=== PATIENT | female | born 1975 | race Caucasian/White ===

== ENCOUNTER 2020-11-15 12:07 | Outpatient (CLI) | payer BC, MEDICARE, SELFPAY ==
--- NOTE | ~2020-11-15 | XR_ITS ---
XR hip BI wo pelvis DATE: 11/15/2020 12:34 INDICATION: Bilateral anterior hip pain for 2 months. TECHNIQUE: AP and lateral views of each hip COMPARISON: None FINDINGS: No fracture, dislocation, avascular necrosis or bone destruction of either hip. Normal alig nment at the pubic symphysis and sacroiliac joints. IMPRESSION: No significant abnormality of the hips Reviewed, dictated and finalized at location A.
== END 2020-11-15 12:08 | disposition home or self-care (01) ==
LOC: CHSIMG 12:14
PROVIDERS: PCP Internal Medicine; Visit Provider Internal Medicine
DX: M25.552 Pain in left hip (principal); M25.551 Pain in right hip
CPT/HCPCS: 73521

== ENCOUNTER → 2020-11-28 07:43 | Outpatient (CLI) | payer BC, MEDICARE, SELFPAY ==
--- NOTE | ~2020-11-28 | MR_ITS ---
EXAMINATION: MR lumbar spine wo/w con DATE: 11/28/2020 08:50 INDICATION: Worsening low back pain TECHNIQUE: Magnetic resonance imaging (MRI) of the lumbar spine was performed without and with 17 mL Multihance intravenous contrast. Sequences included sagittal T2-weighted FSE, sagittal T2-weighted FS FSE, and sagittal and axial T1-weighted FSE. Postcontrast sequences included axial T2-weighted FSE, sagittal T1-weighted FSE, and axial and sagittal T1-weighted FS FSE. COMPARISON: 02/15/2018 FINDINGS: 3 mm retrolisthesis L5 on S1. Alignment is otherwise normal. Vertebral body heights are normal. Norm al marrow signal. No interval change in moderate disc height loss at L5-S1. The conus medullaris term inates at L1-L2. There is normal signal in the caudal spinal cord. Paravertebral soft tissues are unr emarkable. No abnormally enhancing lesions identified. The following disc levels are specifically dis cussed: T12-L1: The disc does not extend beyond the endplate margin. There is mild bilateral facet joint oste oarthritis. There is no neural foraminal stenosis. There is no central canal stenosis. L1-L2: The disc does not extend beyond the endplate margin. There is mild bilateral facet joint osteo arthritis. There is no neural foraminal stenosis. There is no central canal stenosis. L2-L3: The disc does not extend beyond the endplate margin. There is mild bilateral facet joint osteo arthritis. There is no neural foraminal stenosis. There is no central canal stenosis. L3-L4: Disc is mildly bulging. There is mild left and mild to moderate right facet joint osteoarthrit is. There is mild bilateral neural foraminal stenosis. There is no central canal stenosis. L4-L5: Disc is mildly bulging. There is mild hypertrophy of the ligamentum flavum. There is moderate bilateral facet joint osteoarthritis. There is mild to moderate right and mild left neural foraminal stenosis. There is mild central canal stenosis. L5-S1: Again seen is a moderate diffuse disc bulge with annular fissure and superimposed small centra l disc extrusion with disc material extending approximately 3 to 4 mm caudal to the level of the supe rior endplate of S1. A prior left paracentral extrusion which extended 6 mm cephalad to the level of the inferior endplate of L5 and measured 8 x 5 mm transaxial dimensions is no longer visualized. Ther e is mild bilateral facet joint osteoarthritis. There is mild right and mild to moderate left neural foraminal stenosis. Improvement in the prior mild central canal stenosis as well as of the prior left greater than right narrowing of the lateral recesses. IMPRESSION: 1. Unchanged moderate disc height loss at L5-S1. There is an annular fissure with disc extrusion at t his level which appears unchanged centrally but with resolution of a prior cephalad extending left pa racentral disc extrusion with decrease in the prior mild central canal and left-sided predominant lat eral recess narrowing. 2. No interval change in minimal to mild spondylosis in the more cephalad lumbar spine. Reviewed, dictated and finalized at location B. IMPRESSION: 1. Unchanged moderate disc height loss at L5-S1. There is an annular fissure wi th disc extrusion at this level which appears unchanged centrally but with reso lution of a prior cephalad extending left paracentral disc extrusion with decre ase in the prior mild central canal and left-sided predominant lateral recess n arrowing. 2. No interval change in minimal to mild spondylosis in the more cephalad lumba r spine.
[2020-11-28 08:23] LABS: Estimated Glomerular Filt Rate > 60
== END ==
PROVIDERS: PCP Internal Medicine; Visit Provider Internal Medicine
DX: M54.5 Low back pain (principal)
CPT/HCPCS: 72158; A9577

== ENCOUNTER → 2021-01-10 12:59 | Outpatient (CLI) | payer BC, MEDICARE, SELFPAY ==
--- NOTE | ~2021-01-10 | MM_ITS ---
EXAMINATION: MM screening [facility] BI w sarah HISTORY: Screening TECHNIQUE: Craniocaudal and mediolateral oblique 3-D tomosynthesis images were obtained and synthetic 2-D images were generated. CAD analysis was submitted and interpreted. COMPARISON: Comparison to multiple prior studies sequentially, with oldest reviewed study dated 07/24. BREAST PARENCHYMAL COMPOSITION: There are scattered areas of fibroglandular density. FINDINGS: There is no evidence of suspicious mass, calcification, or architectural distortion to sugg est malignancy in either breast. There has been no suspicious interval change. IMPRESSION: 1. No mammographic evidence of malignancy. 2. Recommend routine screening mammography in one year. BI-RADS Category 1: Negative Reviewed, dictated and finalized at location A.
== END ==
PROVIDERS: PCP Internal Medicine; Visit Provider Obstetrics & Gynecology
DX: Z12.31 Encounter for screening mammogram for malignant neoplasm of breast (principal)
CPT/HCPCS: 77063; 77067

== ENCOUNTER → 2022-03-04 16:06 | Outpatient (CLI) | payer BC, SELFPAY ==
--- NOTE | ~2022-03-04 | MM_ITS ---
EXAMINATION: MM screening [facility] BI w sarah HISTORY: Screening mammogram TECHNIQUE: Craniocaudal and mediolateral oblique 3-D tomosynthesis images were obtained and synthetic 2-D images were generated. CAD analysis was submitted and interpreted. COMPARISON: 01/10/2021, 12/05/2018 BREAST PARENCHYMAL COMPOSITION: There are scattered areas of fibroglandular density. FINDINGS: There is no suspicious mass, calcification, or architectural distortion to suggest malignan cy in either breast. There has been no suspicious interval change. IMPRESSION: 1. No mammographic evidence of malignancy. 2. Recommend routine screening mammography in one year. BI-RADS Category 1: Negative Reviewed, dictated and finalized at location A.
== END ==
PROVIDERS: PCP Internal Medicine; Visit Provider Obstetrics & Gynecology
DX: Z12.31 Encounter for screening mammogram for malignant neoplasm of breast (principal)
CPT/HCPCS: 77063; 77067

== ENCOUNTER 2022-12-27 13:37 | Emergency (ER) | payer BC, MEDICARE, SELFPAY ==
[2022-12-27 13:38] VITALS: BP 150/78; PULSE 94; RESP 16; TEMP 36.6; O2SAT 98
--- NOTE | 2022-12-27 14:08 | ED.SKABFB ---
HPI - Skin/Abscess/Foreign Bdy General Chief complaint: Skin/Abscess/Foreign Body Stated complaint: growing cyst Time Seen by Provider: 12/27/22 13:48 History of Present Illness HPI narrative: 47 year old female here for evaluation of an abscess to her right breast. States that the abscess has been intermittent for the past several years, was previously surgically excised by Dr. Michael Nash states it returned about a week ago. She saw him in office and was placed on antibiotics but the redness swelling and pain has not improved. She states that the symptoms ibuprofen without relief of her symptoms, last taken yesterday. Related Data Home Medications Medication Instructions Recorded Confirmed cyclobenzaprine 5 mg tablet 5 mg PO DAILY 07/23/22 07/23/22 Allergies Allergy/AdvReac Type Severity Reaction Status Date / Time atorvastatin [From Lipitor] Allergy Severe Other Verified 07/23/22 08:57 rosuvastatin [From Crestor] Allergy Severe Other Verified 07/23/22 08:57 Review of Systems Review of Systems: Gen: Denies fevers or chills Eyes: Denies eye pain or visual change ENT: Denies congestion Respiratory: Denies shortness of breath or cough CV: Denies chest pain or palpitations GI: Denies abdominal pain nausea, emesis or diarrhea denies burning, urgency, frequency or hematuria Musculoskeletal: Denies back pain or muscle pain Neuro: Denies numbness, tingling, weakness or focal weakness Skin: Reports abscess to right breast Except as documented, all other systems reviewed and negative PMFSH Surgical History Surgical History History of carpal tunnel release Social History Social History (Updated 07/23/22 @ 08:59 by Luisa Sauceda) Smoking status: Former smoker Alcohol intake: never Lack of Transportation: No Lack of Food: Sometimes True Current Housing: I Have Housing Concerned About Future Housing: No Difficulty Paying Gas/Electric Bills: No Difficulty Paying for Meds: No Currently Unemployed: No Education: Trade/Vocational Certificate Difficulty w/ Childcare or Family Care: No Exam Narrative: Gen: alert, oriented, NAD Eyes: EOMI, no icterus Pulm: Respirations even and unlabored, symmetric thorax expansion, no audible stridor or visible cyanosis CV: Regular rate per telemetry GI: No distension, no voluntary/involuntary guarding Neuro: AOx4, moves all extremities without apparent difficulty or weakness, follows commands Skin: there is a 2x2 cm area of erythema, induration and fluctuance to the 3 o'clock position of the right breast that is tender to palpation. Psych: Normal mood/affect, insight/judgement good, adequate fund of knowledge, recent/remote memory intact Course Vital Signs Vital signs: Vital Signs Temperature 97.8 F 12/27/22 13:38 Pulse Rate 94 12/27/22 13:38 Respiratory Rate 16 12/27/22 13:38 Blood Pressure 150/78 H 12/27/22 13:38 Pulse Oximetry 98 12/27/22 13:38 Oxygen Delivery Room Air 12/27/22 13:38 Temperature 97.8 F 12/27/22 13:38 Pulse Rate 94 12/27/22 13:38 Respiratory Rate 16 12/27/22 13:38 Blood Pressure 150/78 H 12/27/22 13:38 Pulse Oximetry 98 12/27/22 13:38 Oxygen Delivery Room Air 12/27/22 13:38 Procedures Abscess I/D other: Date of Incision: 12/27/22 Time of Incision: 14:00 Side (if applicable): right Local Anesthetic: lidocaine 1% Amount of anesthesia used (mL): 1 Technique: incised with #11 blade Amount of fluid expressed (mL): 5 Irrigation: No Packing used?: none I&D Results: Pus and Blood MDM - Skin/Abscess/Foreign Bdy MDM Narrative Medical decision making narrative: 47-year-old female here for evaluation of pain, swelling and redness to the medial aspect of her right breast x several days, consistent with abscess versus furuncle. The area was incised and drained in
[2022-12-27] MEDS: LIDOCAINE/PRILOCAINE CREAM 2.5-2.5% TUBE 1 EACH TOPICAL (14:20)
[2022-12-27] MEDS: KETOROLAC 30 MG/ML VIAL (*BKC) IM (14:20)
[2022-12-27] MEDS: ACETAMINOPHEN 325 MG TABLET 650 MG PO (14:20)
== END 2022-12-27 15:32 | disposition home or self-care (01) ==
PROVIDERS: Emergency Provider Physician Assistant; PCP Internal Medicine
DX: N61.1 Abscess of the breast and nipple (principal); Z87.891 Personal history of nicotine dependence
CPT/HCPCS: 10060; 96372; 99283; A9270; J1885

== ENCOUNTER 2023-01-22 02:17 | Day surgery (SDC) | payer BC, MEDICARE, SELFPAY ==
[2023-01-13 09:04] VITALS: BMI 28.2
--- NOTE | 2023-01-13 09:09 | PC.NURSE ---
Report to the Outpatient Waiting Room, entrance under the green pavilion located off [address], at time 6:00 on date 01/22/23. Planned Procedure Time: 7:30. Time changes happen often and if your time is changed the preop area will call you the afternoon before. - You and your visitor will be asked to self-screen and do not enter if you have any COVID symptoms. - A mask is optional within the hospital at this time. Patients may have clear liquids (water, carbonated beverages, clear teas, apple juice) until 3 hours prior to surgery (4:30) with a maximum of 20 ounces. - No food from midnight until time of surgery Take the following medications with a SIP of water the morning of surgery: NONE DO NOT STOP ANY OF YOUR OTHER PRESCRIPTION MEDICATIONS PRIOR TO SURGERY EXCEPT THE FOLLOWING Medications to discontinue per physician: N/A Date to take last dose: N/A Please no make-up, nail lao, hairspray, perfume, deodorant, or body powder the day of surgery. No jewelry (including any body piercings) or valuables the day of surgery, leave them at home. Please take a shower or bath the night before, or the morning of, surgery with an antibacterial soap. Wear comfortable, loose fitting clothing. - Jewelry must be removed prior to entering the operating room. Rings and piercings that are not removed may be cut off. - The hospital will not accept responsibility for valuables. - Please leave all valuables, including medications, at home the day of surgery. If you are going home after surgery, a licensed cement mixer driver must drive you home. - NO public transportation without another adult if you receive anesthesia. - We recommend that an adult stay with you for 24 hours following discharge. - We also recommend that you do not drive, make important decision, drink alcoholic beverages, or take any drugs that were not prescribed by your health care provider for at least 24 hours after your discharge time. Follow any additional instructions given to you from your surgeon. If you or anyone in your household have experienced Covid symptoms in the past week, please notify your surgeon or the nurse liaison at the phone number below for possible testing. Telephone instructions given to PT Jose MANCILLA and asked if any additional questions and then verbalized understanding. Patient advised to call surgeon office or pre surgery nurse liaison [phone] if any additional questions.
--- NOTE | 2023-01-19 07:29 | PM.IMHP ---
H&P: HPI History of Present Illness Date/Time: 01/19/23 07:29 Chief Complaint: Loss of urine Narrative: is a 39 year female admitted for tension-free vaginal tape secondary to stress this pacing leads severe the sneezing. She is also post she is were she is a was or lifts she has loss of this is exam she will tension-free tape risks and benefits were reviewed exclusive aspiration bleeding, transfusion perforation or other with the need for open repair. The risk of surgical was also reviewed great detail. She received the tension-free vaginal tape handout. She questions answered and asked to proceed [facility] Surgical History Surgical History History of carpal tunnel release Social History Social History Smoking packs per day: 1.5 Smoking cigarettes per day: 30.0 Years smoked: 17 Smoking pack-years: 25.50 Smoking status: Former smoker Tobacco type: cigarettes Smoking end date: 08/23/12 Alcohol intake: current Alcohol use details: 1/MONTH Substance use: never Substance use type: does not use Lack of Transportation: No Lack of Food: Sometimes True Current Housing: I Have Housing Concerned About Future Housing: No Difficulty Paying Gas/Electric Bills: No Difficulty Paying for Meds: No Currently Unemployed: No Education: Trade/Vocational Certificate Difficulty w/ Childcare or Family Care: No Living arrangements: with family Spiritual care concerns: No Meds Home Medications and Allergies Home Medications Medication Instructions Recorded Confirmed Type cyclobenzaprine 5 mg tablet 5 mg PO HS 07/23/22 01/13/23 History Allergies Allergy/AdvReac Type Severity Reaction Status Date / Time atorvastatin [From Lipitor] Allergy Severe Swelling Verified 01/13/23 09:03 rosuvastatin [From Crestor] Allergy Severe Swelling Verified 01/13/23 09:03 Exam Const: General: cooperative, healthy appearing, comfortable and average body habitus Orientation/consciousness: oriented to person, oriented to place and oriented to time HENMT: Head: normal to inspection Resp: Effort & Inspection: normal respiratory effort Cardio: Rate: regular rate Rhythm: regular rhythm Heart sounds: S1 normal heart sound present and S2 normal heart sound present GI: Inspection: normal to inspection : External Female Exam: normal external appearance Speculum Exam - Vagina: normal appearance of the vagina and other ( urethra with excess movement with Valsalva) Speculum Exam - Cervix: normal appearance of the cervix Bimanual exam- vagina & uterus: enlarged Bimanual Exam- Adnexa, other: normal adnexae Assessment and Plan Assessment and plan (1) Overflow stress urinary incontinence in female: Code(s): N39.3 - Stress incontinence (female) (male); N39.490 - Overflow incontinence Status: Acute Plan tension-free vaginal tape with cystoscopy
[2023-01-22] VITALS (13 sets, daily range): BP systolic 98–125; BP diastolic 53–85; PULSE 49–67; RESP 12–20; TEMP 36.4; O2SAT 96–100
--- NOTE | 2023-01-22 05:59 | WPDHPUPDATE1 ---
History and Physical Update Update Date/Time: 01/22/23 05:59 History and Physical has been reviewed, including an updated exam of the patient. There are NO changes in the patient's condition. Risks, benefits, and alternatives have been discussed and questions answered. Patient agrees to proceed with procedure.
[2023-01-22] MEDS: LACTATED RINGERS 1,000 ML 30 ML IV CONT ×2 (06:40→09:13)
--- NOTE | 2023-01-22 07:04 | WPDANESEPPF ---
Anes - Initial Pre Proc Eval Procedure: Operation Date: 01/22/23 07:30 Proposed Procedures p Tension Free Vaginal Taping - Sylvain Nash MD Date/Time: 01/22/23 07:04 Surgeon: Sylvain Nash MD Pre Op Diagnosis: sudden urinary incontinance Patient Data Age: 47 Gender: F Height: 1.68 m Weight: 79.4 kg Allergies Allergy/AdvReac Type Severity Reaction Status Date / Time atorvastatin [From Lipitor] Allergy Severe Swelling Verified 01/13/23 09:03 rosuvastatin [From Crestor] Allergy Severe Swelling Verified 01/13/23 09:03 Home Medications Medication Instructions Recorded Confirmed Type cyclobenzaprine 5 mg tablet 5 mg PO HS 07/23/22 01/22/23 History hydrocodone 5 mg-acetaminophen 325 1 tablet PO Q4H PRN pain #20 tabs 01/22/23 Rx mg tablet Patient hx anesthesia problems: none Family hx anesthesia problems: none Results Review: All pre-operative results and documents have been reviewed as part of the pre-operative evaluation. [facility] Surgical History Surgical History History of carpal tunnel release Social History Social History Smoking packs per day: 1.5 Smoking cigarettes per day: 30.0 Years smoked: 17 Smoking pack-years: 25.50 Smoking status: Former smoker Tobacco type: cigarettes Smoking end date: 08/23/12 Alcohol intake: current Alcohol use details: 1/MONTH Substance use: never Substance use type: does not use Lack of Transportation: No Lack of Food: Sometimes True Current Housing: I Have Housing Concerned About Future Housing: No Difficulty Paying Gas/Electric Bills: No Difficulty Paying for Meds: No Currently Unemployed: No Education: Trade/Vocational Certificate Difficulty w/ Childcare or Family Care: No Living arrangements: with family Spiritual care concerns: No Anes - Eval Final PreProcedure Day of Procedure 01/22/23 07:04 Patient weight: overweight Heart: regular rate and rhythm Lungs: clear to auscultation Airway: Mallampati scale class III Neurological: alert and oriented Last oral intake: >/= 8 hours ASA classification: II Emergent: no Anesthetic plan: proceed Anesthesia type and monitoring: general LMA and standard monitoring Results Review: All pre-operative results and documents have been reviewed as part of the pre-operative evaluation. Informed Consent: The patient's anesthetic plan and its attendant risks and benefits were discussed with the patient/family/POA. Questions were solicited and answers provided to the satisfaction of the patient/family/POA.
--- NOTE | 2023-01-22 07:17 | WPDHPUPDATE1 ---
History and Physical Update Update Date/Time: 01/22/23 07:17 History and Physical has been reviewed, including an updated exam of the patient. There are NO changes in the patient's condition. Risks, benefits, and alternatives have been discussed and questions answered. Patient agrees to proceed with procedure.
[2023-01-22] MEDS: ceFAZolin 2 GM/D5W 50 ML 2 GM/50 ML BAG IVPB (07:25)
[2023-01-22] MEDS: KETOROLAC 30 MG/ML VIAL (*BKC) IV PUSH (07:43)
--- NOTE | 2023-01-22 08:08 | W.PM.PROC2 ---
Procedure Note - Detailed Date of Procedure 01/22/23 Pre-op Diagnosis S stress urinary incontinance Post-op Diagnosis Same Procedure Performed tissues free vaginal tape with cystoscopy Surgeon Sylvain Nash MD Anesthesia General Indications this is 47-year-old female with stress urinary Findings hyperactivity with Valsalva the urethra Description of Procedure patient was prepped draped in normal sterile fashion placed in dorsal lithotomy position. Under excellent general trach anesthesia weighted speculum placed posterior fornix vagina. Eighteen Portuguese catheter was placed in bladder. And mid urethral incision was made and the lateral bladder space was entered by blunt dissection. The urethral guide was placed and the bladder retracted laterally the over the right foot retropubic bladder space entered at a 45? angle up to a 35degree and through the fascia. The urethra was retracted to the opposite side and this was repeated on the contralateral side a 70degree cystoscope was then inserted and minor perforation was noted. The bladder was emptied the catheter replace the catheter guide replaced and bit wider entrance was undertaken. The 70degree cystoscope was inserted and noted be clear of the the bladder. The small area where the perforation had occurred was not bleeding and appeared hemostatic. The plastic was removed from the tension-free tape the and tape cut at the suprapubic area. She the incision and the vagina closed with 3-0 Monocryl. A catheter guide of 16 Portuguese was placed in a leg black place Dorinda keep that in for another week. Her spouse was made aware and she be placed on Keflex for 5 days as prevention of UTI. Blood loss estimated at25cc. All sponge needle and instrument counts were correct Implants fit device Estimated Blood Loss 25 Drains No Packing No Pathology None sent Complications Other complications ( bladder perforation as noted) Condition Stable Disposition PACU
[2023-01-22] MEDS: fentaNYL CITRATE INJ (*CRX) 100 MCG/2 ML VIAL 25 MCG IV PUSH ×2 (09:03→09:12)
[2023-01-22] MEDS: ONDANSETRON INJ 4 MG/2 ML VIAL IV PUSH (09:36)
[2023-01-22] MEDS: SCOPOLAMINE 1.5 MG PATCH TRANSDERM (09:53)
[2023-01-22] MEDS: diphenhydrAMINE HCl INJ 50 MG/ML VIAL 25 MG IV PUSH (09:56)
== END 2023-01-22 11:15 | disposition home or self-care (01) ==
PROVIDERS: PCP Internal Medicine; Visit Provider Obstetrics & Gynecology
PROC: 0TSD0ZZ Reposition Urethra, Open Approach (ICD-10-PCS; CPT 57288; principal; 2023-01-22 07:30)
DX: N39.3 Stress incontinence (female) (male) (principal); N39.490 Overflow incontinence; Z87.891 Personal history of nicotine dependence
CPT/HCPCS: 57288; 36415; 86850; 86900; 86901; A9270; C1771; J0690; J1100; J1200; J1885; J2250; J2405; J2704; J3010; J7030; J7120

== ENCOUNTER 2023-06-07 11:52 | Outpatient (CLI) | payer BC, SELFPAY ==
--- NOTE | ~2023-06-07 | XR_ITS ---
XR chest 2V DATE: 06/07/2023 12:14 INDICATION: Wheezing. Upper respiratory infection. TECHNIQUE: 2 views COMPARISON: 04/03/2021 PA chest FINDINGS: Normal heart size. No hilar or mediastinal enlargement. Focal infiltrate or atelectasis in the posteromedial right lower lobe. No pulmonary infiltrate or consolidation is noted elsewhere. No pleural effusion or pulmonary vascula r congestion or pneumothorax. Mild thoracic dextroscoliosis. Mild degenerative spurring of the thoracic spine. IMPRESSION: Focal infiltrate in the posterior medial right lower lobe which may be due to atelectasis or consolidation. Pneumonia is not excluded. Reviewed, dictated and finalized at location B.
== END 2023-06-07 11:53 | disposition home or self-care (01) ==
LOC: CHSIMG 11:57
PROVIDERS: PCP Internal Medicine; Visit Provider Nurse Practitioner Family
DX: J06.9 Acute upper respiratory infection, unspecified (principal); R06.2 Wheezing; R91.8 Other nonspecific abnormal finding of lung field
CPT/HCPCS: 71046

== ENCOUNTER 2023-06-24 17:23 | Emergency (ER) | payer BC, SELFPAY ==
[2023-06-24] VITALS (13 sets, daily range): BP systolic 135–156; BP diastolic 82–90; PULSE 66–87; RESP 13–22; TEMP 36.6; O2SAT 94–100
--- NOTE | ~2023-06-24 | CT_ITS ---
EXAMINATION: CT abdomen pelvis wo con DATE: 06/24/2023 19:29 INDICATION: Left flank pain TECHNIQUE: Computed tomography (CT) of the abdomen and pelvis was performed without intravenous contr ast. The dose-length product was 685.49 mGy-cm. Automated exposure control and iterative reconstructi on technique were employed. COMPARISON: None. FINDINGS: Wedge-shaped atelectasis/scarring right lower lobe. Superimposed pneumonia not excluded. He art size normal. No significant pleural or pericardial effusion. No significant vascular abnormality. No lymphadenopathy. The liver, spleen, pancreas, adrenal glands and left kidney are unremarkable. Th ere are 2 punctate 2 mm nonobstructing right renal stones. No ureteral stones or hydronephrosis. Blad rose is moderately distended. Nonobstructive bowel gas pattern. Colonic diverticulosis without evidenc e for diverticulitis. IMPRESSION: 1. Nonobstructing right nephrolithiasis. 2: Wedge-shaped atelectasis/scarring right lower lobe. Superimposed pneumonia not excluded. Reviewed, dictated and finalized at location A.
[2023-06-24 18:01] LABS: Basophils Percent Auto 0.5 % (0.2-1.2); Eosinophils Absolute Auto 0.1 K/mm3 (0-0.3); Eosinophils Percent Auto 0.9 % (0-4.4); Hematocrit 47.5 % (37.0-47.0); Hemoglobin 15.5 g/dL (12.0-15.0); Immature Granulocyte Absolute 0.01 K/mm3 (0.00-0.031); Immature Granulocyte Percent A 0.2 % (0-0.5); Lymphocytes Absolute Auto 1.72 K/mm3 (0.9-3.2); Lymphocytes Percent Auto 25.9 % (18.3-44.2); Mean Corpuscular HGB Conc 32.6 g/dl (32-36); Mean Corpuscular Hemoglobin 28.4 pg (26-34); Mean Corpuscular Volume 87.2 fl (80-100); Mean Platelet Volume 10.7 fl (7.4-10.4); Monocytes Absolute Auto 0.5 K/mm3 (0.1-0.6); Monocytes Percent Auto 7.5 % (2.6-8.5); Neutrophils Absolute Auto 4.3 K/mm3 (1.3-6.7); Platelet Count Result 286 k/mm3 (150-375); Red Blood Count 5.45 M/mm3 (4.2-5.4); Red Cell Distribution Width 13.3 % (11.5-14.5); White Blood Count 6.7 K/mm3 (4.5-10.0)
[2023-06-24 18:09] LABS: Appearance Urine Clear (Clear); Bacteria Urine None Seen /hpf; Bilirubin Urine Negative (Negative); Blood Urine Negative (Negative); Color Urine Yellow (Yellow); Glucose Urine UA Negative (Negative); Ketones Urine Trace mg/dL (Negative); Leukocyte Esterase Ur Trace LEU/UL (Negative); Nitrate Urine Negative (Negative); Non Pathogenic Casts 0-2; Protein Urine Negative (Negative); RBC Urine 0-2 /hpf (0-2); Specific Grav Ur 1.012 (1.001-1.035); Squamous Epithelial Cell Urine Occasional /hpf (Few); Urobilinogen Urine 0.2 mg/dL (<2.0)
[2023-06-24 18:12] LABS: Add Urine Microscopic? YES; Alanine Aminotransferase 52 U/L (6-35); Albumin Level 4.7 g/dL (3.5-5.1); Alkaline Phosphatase 81 U/L (38-126); Anion Gap 4 mmol/L (8-16); Aspartate Amino Transferase 38 U/L (14-36); Bilirubin,Total 0.7 mg/dL (0.2-1.3); Blood Urea Nitrogen 22 mg/dL (7-17); Calcium 10.1 mg/dL (8.4-10.2); Carbon Dioxide 31 mmol/L (22-30); Chloride 101 mmol/L (98-107); Estimated CRCL calculation 82 ml/min; Estimated Glomerular Filt Rate > 60; Glucose 95 mg/dL (65-110); Lipase 186 U/L (23-300); Potassium 4.1 mmol/L (3.4-5.0); Sodium 136 mmol/L (137-145)
--- NOTE | 2023-06-24 19:09 | ED.FEMALEGU ---
HPI - Female Genitourinary General Chief complaint: Urogenital-Female Stated complaint: I think I have kidney stones Time Seen by Provider: 06/24/23 18:43 History of Present Illness HPI Narrative: Patient is a 47-year-old female who presents to the emergency department to this evening complaining of left-sided flank pain. Patient states that she does have a history of kidney stones, has had 2 in the past which both required lithotripsy due to the large size. Patient states that her last kidney stone was approximately 8 years ago and she has not had 1 since then. She states that her left flank pain started on hollow weight night, June 22, and has been progressively getting worse. Patient states that today the pain was very uncomfortable and she finally decided to come to the emergency department for further evaluation. Patient admits that she recently finished course of antibiotic for pneumonia with doxycycline and azithromycin. She is denying any dysuria or hematuria but states that she has been having increased urinary frequency. Patient denies any chest pain, shortness of breath, nausea, vomiting, abdominal pain, constipation, diarrhea, melena, hematochezia, fevers or chills. He also denies any headaches, dizziness, lightheadedness, blurry visions, dizziness, focal weakness, numbness and or tingling. There are no other modifying, alleviating, or precipitating factors at this time. Related Data Home Medications Medication Instructions Recorded Confirmed cyclobenzaprine 5 mg tablet 5 mg PO HS 07/23/22 01/22/23 Allergies Allergy/AdvReac Type Severity Reaction Status Date / Time atorvastatin [From Lipitor] Allergy Severe Swelling Verified 06/24/23 17:23 rosuvastatin [From Crestor] Allergy Severe Swelling Verified 06/24/23 17:23 Review of Systems Review of Systems: All systems are reviewed and are negative unless stated otherwise in the HPI. [facility] Surgical History Surgical History History of carpal tunnel release Social History Social History Smoking packs per day: 1.5 Smoking cigarettes per day: 30.0 Years smoked: 17 Smoking pack-years: 25.50 Smoking status: Former smoker Tobacco type: cigarettes Smoking end date: 08/23/12 Alcohol intake: current Alcohol use details: 1/MONTH Substance use: never Substance use type: does not use Lack of Transportation: No Lack of Food: Sometimes True Current Housing: I Have Housing Concerned About Future Housing: No Difficulty Paying Gas/Electric Bills: No Difficulty Paying for Meds: No Currently Unemployed: No Education: Trade/Vocational Certificate Difficulty w/ Childcare or Family Care: No Living arrangements: with family Spiritual care concerns: No Exam Narrative: General: Alert, awake, afebrile, in no acute distress. HEENT: PERRL, no rhinorrhea, no post nasal drip, oropharynx clear. Neck: Trachea midline, no JVD, no lymphadenopathy. Cardiovascular: Regular rate and rhythm, no murmurs, rubs or gallops, no peripheral edema. Respiratory: Clear to auscultation bilaterally, no tachypnea, no wheezing, no rhonchi, no rubs, no respiratory distress. Abdomen: Soft, nontender, nondistended, no rebound, no guarding, no peritoneal signs, negative CVA tenderness over left flank. Musculoskeletal: No joint swelling or deformity, normal muscle tone. Skin: No rashes or petechia, no signs of infection. Psychiatric: Alert and oriented, normal behavior and judgment for situation. Neurological: Alert and oriented to person, place, and time. Follows all commands. No focal deficits, speech is clear and fluent. Course Vital Signs Vital signs: Vital Signs Temperature 98 F 06/24/23 17:26 Pulse Rate 81 06/24/23 17:26 Respiratory Rate 18 06/24/23 17:26 Blood Pressure 135/82 06/24/23 17:26 Pulse Oximetry 97 06/24/23 1
--- NOTE | 2023-06-24 19:14 | PC.NURSE ---
This RN took patient report from RONALD Holland. This RN took patient report from RONALD Holland.
[2023-06-24] MEDS: KETOROLAC 15 MG/ML VIAL (*BKC) IV PUSH (19:55)
== END 2023-06-24 21:06 | disposition home or self-care (01) ==
PROVIDERS: Family Medicine; Emergency Provider Emergency Medicine; PCP Internal Medicine
DX: R10.9 Unspecified abdominal pain (principal); Z87.442 Personal history of urinary calculi; Z87.891 Personal history of nicotine dependence; R91.8 Other nonspecific abnormal finding of lung field; N20.0 Calculus of kidney
CPT/HCPCS: 36415; 74176; 80053; 81001; 81025; 83690; 85025; 87086; 96374; 99284; J1885

== ENCOUNTER 2023-07-28 11:24 | Outpatient (CLI) | payer BC, SELFPAY ==
--- NOTE | ~2023-07-28 | XR_ITS ---
EXAMINATION: XR chest 2V 07/28/2023 11:51 INDICATION: Persistent cough. Pneumonia. PROCEDURE: 2 view chest COMPARISON: 06/07/2023 FINDINGS: The lungs are clear. The cardiomediastinal silhouette is within normal limits. There are no pleural effusions. There is no pneumothorax suspected. IMPRESSION: 1: NO ACUTE CARDIOPULMONARY DISEASE. Reviewed, dictated and finalized at location B. [employer]PER
--- NOTE | ~2023-07-28 | XR_ITS ---
EXAM: XR sinus min 3V DATE: 07/28/2023 11:51 HISTORY: persistant cough/FU pneumonia x May . COMPARISON: None available. FINDINGS: Normal mineralization. No fracture or dislocation. No lytic or blastic lesion. No abnormal intracranial calcification. The aerated spaces are clear. Orbits are symmetric No erosion or periost eal change. Soft tissues within normal limits. IMPRESSION: Unremarkable sinus radiograph findings. Reviewed, dictated and finalized at location K. [employer]
== END 2023-07-28 11:25 | disposition home or self-care (01) ==
LOC: CHSIMG 11:26
PROVIDERS: PCP Internal Medicine; Visit Provider Internal Medicine
DX: R05.9 Cough, unspecified (principal); J18.9 Pneumonia, unspecified organism
CPT/HCPCS: 70220; 71046